=== PATIENT | female | born 1935 | race Caucasian/White ===

== ENCOUNTER 2016-07-07 12:10 | Observation (INO) | payer MEDICARE ==
--- NOTE | ~2016-07-07 | HP ---
History And Physical [place] [id number] [facility] [place]. [address] NAME: IJEOMA PITTS : 34 STATUS : ADM Garry PAT#: [id number] AGE: 80 ADM/REG DATE : 07/07/16 MR#: [id number] REPORT SERV DATE: 07/07/16 DICTATED BY: CHRISTINE LOMAX DATE: 07/07/16 REPORT STATUS : Draft TRANSCRIBED BY: MODMayra DATE: 07/07/16 DATE OF ADMISSION: 07/07/2016 CHIEF COMPLAINT: Left facial weakness as well as numbness starting yesterday progressing to the left upper and left lower lip today. HISTORY OF PRESENT ILLNESS: This is a very pleasant 80 years old female. 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 She has a history also of the right intraventricular thrombus, history of Crohn disease for which she has been prior on immunosuppression, history of prior GI bleed with peptic ulcer disease and GERD, history of achalasia, prior history of sepsis, history of tachycardia for which she has been on metoprolol, depression with anxiety. She is a patient of Dr. Holguin, her GI doctor, presenting today to [facility] with complaints that started yesterday with left facial weakness and numbness starting yesterday afternoon, which went today progressive to the left upper and left lower lip. She did not have any particular headaches. She has not had any chest pain or increasing shortness of breath. No PND. No orthopnea. She did not have any nausea, vomiting. No diarrhea or constipation. She has not had any increased urinary frequency or urgency. No hematemesis or melena. No hematochezia. No other complaints. After discussing with Neurology on-call, Dr. Rich, the patient has been admitted to hospitalist service for further evaluation and treatment. 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 PAST SURGICAL HISTORY: Include melanoma resection, hysterectomy, tonsillectomy, appendectomy, and cholecystectomy. FAMILY HISTORY: Significant for cancer. ALLERGIES: SHE IS ALLERGIC TO PENICILLIN. MEDICATIONS: Listed as her home medications include Tylenol, vitamin B12, vitamin D, Prozac, Toprol-XL, Systane, multivitamin, and Coumadin. REVIEW OF SYSTEMS: A 14-point review of systems has been obtained and pertinent positives have been listed into the history of present illness. Otherwise, negative except those underlying above. PHYSICAL EXAMINATION: VITAL SIGNS: Currently, patient is afebrile on arrival. Her blood pressure was 199/81, heart rate 81, respiratory rate 16, saturating 97% on room air. GENERAL: She is a very pleasant, well-developed, well-nourished female, in no acute History And Physical [address] [address] NAME: IJEOMA PITTS : 34 STATUS : ADM Garry PAT#: [id number] AGE: 80 ADM/REG DATE : 07/07/16 MR#: [id number] REPORT SERV DATE: 07/07/16 DICTATED BY: CHRISTINE LOMAX DATE: 07/07/16 REPORT STATUS : Draft TRANSCRIBED BY: BHAKTI DATE: 07/07/16 distress. She is alert and oriented x3. Nonfocal. She follows all her commands appropriately. HEENT: Pupils equal, round, reactive to light. Extraocular movements intact. NECK: No JVD. No lymphadenopathy. No thyromegaly appreciated. CHEST: Bilateral air entry. Clear anteroposterior. No wheezes, crackles, or rhonchi appreciated. CARDIOVASCULAR: She has regular rate and rhythm. S1, S2 positive. No S3, no S4. No murmurs, rubs, or gallops appreciated. ABDOMEN: Soft with positive bowel sounds. Nontender. No guarding. No rebound. EXTREMITIES: No clubbing, cyanosis, or edema. NEUROLOGIC: She is alert and oriented x3. She is nonfocal. She does have left facial weakness, numbness involving the forehead and the left upper and lower lips. Cranial nerves are intact. She follows all her commands appropriately. LABORATORY DATA: Labs from today include sodium of 143, potassium 4, chloride 112, CO2 of 26, BUN 12, creatinine 0.89, and glucose is 94. Her calcium is 8.8. Her total bilirubin is 0.3, alkaline phosphatase 170, ALT 58, AST 53. Troponin I less than 0.02. Her white count is 5.4, hemoglobin is 12.9, hematocrit 39.1, and platelets are 324. Her INR is 3. EKG shows normal sinus rhythm, some LVH, otherwise negative. Chest x-ray, portable, performed in the emergency room shows stable cardiomegaly. Lungs are clear. The CT of the brain without contrast shows moderate atrophy and deep white matter changes, no acute pathology, but there can be a subtle nonhemorrhagic infarction of an acute nature that can be missed by CT scan with recommendation to consider an MRI. ASSESSMENT AND PLAN: 1. This is a very pleasant 80-year-old female, presenting to [facility] with left facial weakness and left facial numbness. 2. History of deep venous thrombosis/pulmonary embolism with prior history of right ventricular thrombus on chronic anticoagulation with therapeutic INR. 3. History of tachycardia. 4. History of Crohn disease. 5. History of GI bleed with peptic ulcer disease. 6. History of esophagitis and hiatal hernia. PLAN: 1. The patient is going to be admitted to hospitalist service for observation. We are going to check an MRI/MRA of the brain and neck, and 2D echo. We are going to rule her for NH by serial cardiac enzymes, serial EKG. Check an ESR, CRP. Consult Dr. Rich from Neurology Service for further recommendation. 2. History of Crohn disease, stable currently. 3. History of tachycardia. We are going to continue her home medications. 4. Increased hypertension. We are going to continue her beta-tyrone and provide p.r.n. hydralazine as needed. We are going to provide reasonable pain and nausea control as well as GI and DVT prophylaxis with SCDs. That has been discussed extensively with the patient. All the questions have been answered in full. The patient remains a full code according to patient's wishes well stated. History And Physical [address] [place] [id number] NAME: IJEOMA PITTS : 34 STATUS : ADM Garry PAT#: [id number] AGE: 80 ADM/REG DATE : 07/07/16 MR#: [id number] REPORT SERV DATE: 07/07/16 DICTATED BY: CHRISTINE LOMAX DATE: 07/07/16 REPORT STATUS : Draft TRANSCRIBED BY: BHAKTI DATE: 07/07/16 It is worthwhile to note that the patient is going to be followed up by Dr. Thanh Ryan. CF/BHAKTI Christine Lomax M.D. / [id number]
--- NOTE | ~2016-07-07 | DS ---
Discharge Summary [place] [id number] [place]. [address] NAME: IJEOMA PITTS : 34 STATUS : DIS Garry PAT#: [id number] AGE: 80 ADM/REG DATE : 07/07/16 MR#: [id number] REPORT SERV DATE: 07/09/16 DICTATED BY: DATE: REPORT STATUS : Draft TRANSCRIBED BY: MODL DATE: 07/08/16 ADMISSION DATE: 07/07/2016 DISCHARGE DATE: 07/08/2016 DISCHARGE DIAGNOSES: 1. Rios's palsy. 2. History of deep vein thrombosis and pulmonary embolism, also right ventricular thrombus, on chronic anticoagulation with Coumadin therapy. 3. History of tachycardia. 4. History of Crohn's disease. 5. History of gastrointestinal bleed and peptic ulcer disease. 6. History of esophagitis and hiatal hernia. CONSULTING PHYSICIANS: Include Dr. Sybil Rich with Neurology. DISCHARGE MEDICATIONS: Include vitamin B12, 1000 mcg IM q.30 days; vitamin D 50,000 units p.o. weekly; Prozac 20 mg p.o. every evening; Toprol-XL 25 mg p.o. every evening; Lipitor 40 mg p.o. daily at bedtime; Coumadin per patient's home schedule; Systane one drop ophthalmic daily p.r.n. for dryness and burning; PreserVision one cap p.o. b.i.d.; Tylenol 325 mg p.o. daily p.r.n. for pain; and prednisone tapering dose. IMAGING: Includes MRI of the brain without contrast, which demonstrated atrophy and chronic microvascular white matter ischemic changes, no evidence of an acute intracranial abnormality was noted. CT of the brain without contrast demonstrated the same moderate atrophy and deep white matter changes. No acute abnormality was noted. MRA of the head and neck were performed, which were negative for the [place] region as well as focal areas of decreased signal in the internal carotid arteries bilaterally at the level of the temporal bones which is likely artifactual, although stenosis could not be excluded. No evidence of significant carotid stenosis was noted otherwise. For full H and P, please refer to Dr. Andrea Chávez's dictation on 07/07/2016. Please also see Dr. Sybil Rich's consultation dictation on 07/07/2016. HOSPITAL COURSE/PROBLEM LIST: 1. Rios's palsy. The patient presented yesterday to the emergency department with left- sided facial weakness. She was worked up for an acute CVA. As mentioned above, the imaging was negative. The patient subsequently was diagnosed with Rios's palsy per Dr. Sybil Rich. I will discharge her with a tapering dose of prednisone p.o. She will follow up with Neurology in four weeks. I will also recommend artificial tears for her left eye as well as an eye patch. 2. Due to history of DVT, pulmonary embolism, and left atrial thrombus, the patient is on chronic Coumadin therapy. Her INR today was 3.2. I will leave her on her home-dosing regimen and have her follow up closely for INR checks. 3. History of tachycardia. She has not demonstrated tachycardia here in the hospital. I will continue her on her Toprol-XL and have her follow up with her primary care provider. 4. History of Crohn's, this is stable. Discharge Summary [address] [address] NAME: IJEOMA PITTS : 34 STATUS : DIS Garry PAT#: [id number] AGE: 80 ADM/REG DATE : 07/07/16 MR#: [id number] REPORT SERV DATE: 07/09/16 DICTATED BY: DATE: REPORT STATUS : Draft TRANSCRIBED BY: MODMayra DATE: 07/08/16 5. History of GI bleed. No melena, hematochezia, or hematemesis reported. 6. History of esophagitis and hiatal hernia. The patient will continue her home medications. 7. Hypertension. The patient has been somewhat hypertensive since she has been in the hospital. Likely, this is due to stress of admission as well as the diagnosis of Rios's palsy. The patient reports that she has a blood pressure cuff at home. Her son is an founder and chief executive officer, and he will ensure that she checks her blood pressure daily. If her blood pressure stays elevated, she will follow up with her primary care provider for further management of this. Her last blood pressure is 167/74, heart rate of 71, temperature of 97.8, and O2 saturation 98% on room air. CLR/MODL Luiz Vaz NP / [id number] CC: MD Caden Antonio MD
--- NOTE | ~2016-07-07 | CN ---
Consultation Report [facility] [address] [place]. [address] NAME: IJEOMA PITTS : 34 STATUS : ADM Garry PAT#: [id number] AGE: 80 ADM/REG DATE : 07/07/16 MR#: [id number] REPORT SERV DATE: 07/07/16 DICTATED BY: DATE: REPORT STATUS : Draft TRANSCRIBED BY: MODL DATE: 07/07/16 NEUROLOGY CONSULTATION DATE OF CONSULTATION: 07/07/2016 REASON FOR CONSULT: Left facial weakness, concern for Rios's palsy. HISTORY OF PRESENT ILLNESS: This is an 80-year-old female who presented to [facility] on 07/07/2016. The patient awoke this morning and was noted to have left facial weakness involving upper as well as lower face with the patient also complains of perioral numbness as well as tingling in the left perioral area which has been ongoing since 07/06/2016. The patient reports numbness persisted and otherwise denies any diplopia and denies any dysarthria. Denies any other focal weakness or numbness in the extremities and denies gait abnormality. The patient denies similar events in the past and denies any recent illness, fever, chills, nausea, vomiting, chest pain, or shortness of breath. The patient does complain of eye discomfort secondary to incomplete eye closure as well as erythema in the left eye. The patient does have a history of Crohn's disease as well as history of lower extremity DVTs. Previous history of GI bleed required blood transfusion as well as history of previous immunosuppression recently off immunosuppressors as well as history of PE in the past and right intraventricular thrombus per medical records. FAMILY HISTORY: The patient's family history is significant for cancer. ALLERGIES: THE PATIENT WAS NOTED TO HAVE ALLERGY TO PENICILLIN. MEDICATIONS: The patient's medications consist of Tylenol, vitamin B12, vitamin D, Prozac, Toprol, Systane, multivitamin, and Coumadin. REVIEW OF SYSTEMS: Negative except for those mentioned in the HPI. SOCIAL HISTORY: The patient denies tobacco, alcohol, or recreational drug usage. PHYSICAL EXAMINATION: VITAL SIGNS: At the time of evaluation, the patient's vital signs demonstrated T-max of 98.4, heart rate of 72 to 81, respirations of 12 to 18, and blood pressure of 135 to 199 over 64 to 81. GENERAL: The patient is well developed, well nourished, in no acute distress. CARDIOVASCULAR: Regular rate and rhythm. No carotid bruits were otherwise auscultated. PULMONARY: Examination was clear to auscultation bilaterally. NEUROLOGICAL EXAMINATION: Generally, the patient is alert oriented to person, place, year, and month. Follows simple and 2-step commands. Intact registration and recall. No dysarthria or aphasia was otherwise noted. Again, the patient is able to follow simple and 2-step commands. Cranial nerves 2 through 12, pupils equal, round, and reactive to light. Consultation Report [facility] [address] [facility] [place]. [address] NAME: IJEOMA PITTS : 34 STATUS : ADM Garry PAT#: [id number] AGE: 80 ADM/REG DATE : 07/07/16 MR#: [id number] REPORT SERV DATE: 07/07/16 DICTATED BY: DATE: REPORT STATUS : Draft TRANSCRIBED BY: MODL DATE: 07/07/16 Extraocular eye movement was noted to be intact. No nystagmus was observed. No diplopia was noted by the patient. The patient otherwise was noted to have left upper as well as the lower face weakness at the time of evaluation with the patient noted to have incomplete left eye closure. Reports symmetrical sensation in cranial nerve V1, 2 and 3 distribution area. Tongue was noted to be deviated to the right. Normal palatal movement. Normal hearing at the time of evaluation. The patient does demonstrate 5/5 bilateral upper and lower extremity strength. No pronator drift was otherwise noted. Normal [id number] examination without ataxia with the patient noted to have 5/5 bilateral lower extremity strength. Reports symmetrical sensation in bilateral upper and lower extremity. The patient does demonstrate stable gait as well as stable station. LABORATORY STUDIES: Demonstrated sodium 143, potassium 4.0, chloride 112, bicarb of 26, BUN of 12, creatinine 0.89, glucose of 94, and calcium of 8.8. White blood cell count of 5.4, hemoglobin of 12.9, hematocrit of 39.1, and platelet count of 324. CT scan of her brain demonstrated white matter diseases and generalized atrophy but otherwise no acute process was seen. IMPRESSION: 1. Left facial weakness, reports perioral numbness as well as tongue deviation, at the time of evaluation, to the left, concern for possible stroke versus Rios's palsy. MRI of the brain without contrast is pending. We will also obtain fasting lipid panel and hemoglobin A1c pending MRI results. We will decide if other diagnostic tests are required. We will start the patient on Lipitor 80 mg p.o. at bedtime and continue Coumadin. RECOMMENDATIONS: 1. MRI of the brain without contrast. 2. Fasting lipid panel and hemoglobin A1c. 3. Lipitor 80 mg p.o. at bedtime. 4. Continue Coumadin. [facility]/MODL Caden Rich MD / [id number] CC: Thanh Ryan MD
[2016-07-07 12:03] LABS: BASOPHILS 0 %; EOSINOPHILS 0.4 %; EOSINOPHILS ABSOLUTE 0.02 10/3/uL (0.0-0.53); IMMATURE GRANULOCYTES 0.2 %; IMMATURE GRANULOCYTES ABSOLUTE 0.01 10/3/uL (0.0-0.11); LYMPHOCYTES 13.8 %; LYMPHOCYTES ABSOLUTE 0.74 10/3/uL (0.67-4.30); MONOCYTES ABSOLUTE 0.59 10/3/uL (0.21-1.20); NEUTROPHILS 74.6 %; NEUTROPHILS ABSOLUTE 4.02 10/3/uL (2.02-8.40); PLATELET COUNT 324 10/3/uL (150-400); RBC DISTRIBUTION WIDTH 15.8 % (12.0-16.0); WHITE BLOOD CELLS 5.4 10/3/uL (4.5-10.5)
[2016-07-07 12:04] LABS: HEMATOCRIT 39.1 % (36.0-48.0); HEMOGLOBIN 12.9 g/dL (12.0-16.0); MEAN CORPUSCULAR VOLUME 90.9 fL (80-100)
[2016-07-07 12:05] LABS: MANUAL DIFF NO %
[2016-07-07 12:10] LABS: PARTIAL THROMBO TIME 48.8 SEC (22.5-37.2)
[~2016-07-07 12:10] MED LIST: ACET500CAP PO; ALEVE PM PO; ASAB PO; B121000P IM; BIST PO; BUSPAR10 PO; BUSPAR5 PO; COUMADIN3 MG PO; COUMADIN4 MG PO; COUMADIN6 MG PO; DIL2TAB PO; DURICEF PO; ELIQUIS 5 MG TAB5 MG PO; FESO4 PO; FLAG500TAB PO; HUMIRA INJECTION SC; NEXIUM20 M1 PO; P10 PO; P20 PO; PRIN5 PO; PROTONIX PO; PROZAC PO; PROZAC40 MG PO; SYSTANE OPH; TOPXL25 PO; TOPXL50 PO; TUMSROLL PO; VITAMIN B IM
[2016-07-07 12:11] LABS: PROTIME (NOT ORD) 30.9 SEC (12.0-14.5)
[2016-07-07 12:20] LABS: CHLORIDE, SERUM 112 MMOL/L (96-112); CREATININE 0.89 MG/DL (0.55-1.02); GFR AFRICAN AMERICAN 70 ML/MIN (>=60); GFR NON AFRICAN AMERICAN 61 ML/MIN (>=60); GLUCOSE, SERUM 94 MG/DL (60-99); SGOT(AST) 53 U/L (5-40); SGPT(ALT) 58 U/L (5-65); SODIUM, SERUM 143 MMOL/L (135-148); TOTAL BILIRUBIN 0.3 MG/DL (0-1.2); TROPONIN I <0.02 NG/ML (<0.05)
[2016-07-07 12:23] LABS: A/G RATIO 0.6 (0.7-1.9); ALBUMIN 3.1 G/DL (3.5-5.0); ALKALINE PHOSPHATASE 170 U/L (45-117); BUN (BLOOD UREA NITROGEN) 12 MG/DL (6-23); CALCIUM, SERUM 8.8 MG/DL (8.5-10.4); CO2 (CARBON DIOXIDE) 26 MMOL/L (24-34); GLOBULIN 4.8 G/DL (2.5-4.1); TOTAL PROTEIN 7.9 G/DL (6.0-8.5)
[2016-07-07] MEDS ORDERED: SYSTANE OPH (14:20)
[2016-07-07] MEDS ORDERED: PROZAC PO (14:20)
[2016-07-07] MEDS ORDERED: TOPXL25 PO (14:21)
[2016-07-07] MEDS ORDERED: VITD PO (14:21)
[2016-07-07] MEDS ORDERED: PRESERVISION A1 EAC1 PO (14:22)
[2016-07-07] MEDS ORDERED: T PO (14:25)
[2016-07-07] MEDS ORDERED: B121000P IM (14:25)
[2016-07-07] MEDS ORDERED: C1 PO (14:25)
[2016-07-07 20:55] LABS: PHOSPHORUS, SERUM 2.1 MG/DL (2.5-4.5)
[2016-07-07 20:56] LABS: C-REACTIVE PROTEIN < 2.9 MG/L (<8.0)
[2016-07-08 04:46] LABS: BASOPHILS 0 %; EOSINOPHILS 1.3 %; EOSINOPHILS ABSOLUTE 0.07 10/3/uL (0.0-0.53); HEMATOCRIT 36.8 % (36.0-48.0); HEMOGLOBIN 11.9 g/dL (12.0-16.0); IMMATURE GRANULOCYTES 0.4 %; IMMATURE GRANULOCYTES ABSOLUTE 0.02 10/3/uL (0.0-0.11); LYMPHOCYTES 18.1 %; LYMPHOCYTES ABSOLUTE 1.01 10/3/uL (0.67-4.30); MEAN CORPUS HGB CONC 32.3 g/dL (32.0-36.0); MEAN CORPUSCULAR HEMOGLOB 29.5 pg (26.0-34.0); MEAN CORPUSCULAR VOLUME 91.3 fL (80-100); MEAN PLATELET VOLUME 9.4 fL (9.2-13.0); MONOCYTES ABSOLUTE 0.84 10/3/uL (0.21-1.20); NEUTROPHILS 65.2 %; NEUTROPHILS ABSOLUTE 3.65 10/3/uL (2.02-8.40); PLATELET COUNT 311 10/3/uL (150-400); RBC DISTRIBUTION WIDTH 15.8 % (12.0-16.0); RED CELL COUNT 4.03 10/6/uL (4.0-5.6); WHITE BLOOD CELLS 5.6 10/3/uL (4.5-10.5)
[2016-07-08 04:47] LABS: MANUAL DIFF NO %
[2016-07-08 04:52] LABS: INTERNATIONAL NORMAL RATI 3.2 UNITS (-); PROTIME (NOT ORD) 32.2 SEC (12.0-14.5)
[2016-07-08 05:04] LABS: A/G RATIO 0.7 (0.7-1.9); ALBUMIN 2.9 G/DL (3.5-5.0); ALKALINE PHOSPHATASE 152 U/L (45-117); BUN (BLOOD UREA NITROGEN) 12 MG/DL (6-23); CHLORIDE, SERUM 113 MMOL/L (96-112); CO2 (CARBON DIOXIDE) 22 MMOL/L (24-34); CREATININE 0.75 MG/DL (0.55-1.02); GFR AFRICAN AMERICAN 87 ML/MIN (>=60); GFR NON AFRICAN AMERICAN 75 ML/MIN (>=60); GLOBULIN 4.1 G/DL (2.5-4.1); GLUCOSE, SERUM 95 MG/DL (60-99); POTASSIUM, SERUM 3.9 MMOL/L (3.5-5.3); SGOT(AST) 37 U/L (5-40); SGPT(ALT) 50 U/L (5-65); SODIUM, SERUM 144 MMOL/L (135-148); TOTAL BILIRUBIN 0.3 MG/DL (0-1.2); TROPONIN I <0.02 NG/ML (<0.05)
[2016-07-08 07:51] LABS: WBC (NOT ORDERED) (RFLEX) 0 (0-5)
[2016-07-08 08:01] LABS: CHOL/HDL RATIO(NOT ORDER) 2.6 (0-5); CHOLESTEROL 131 MG/DL (< 200); LDL CHOLESTEROL 54 MG/DL (< 130); NON-HDL CHOLESTEROL 81 MG/DL (< 160); TRIGLYCERIDE 139 MG/DL (< 150)
[2016-07-08 08:07] LABS: HDL CHOLESTEROL 50 MG/DL (> 49)
[2016-07-08 08:10] LABS: ASCORBIC ACID (UR NOT ORDER) 20 (NEG); BILIRUBIN, URINE NEGATIVE (NEG); KETONE, URINE NEGATIVE (NEG); LEUKOCYTE ESTERASE(NOT OR NEG (NEG)
[2016-07-08] MEDS ORDERED: LIPITOR40 (15:16)
[2016-07-08] MEDS ORDERED: P1 (15:17)
[2016-09-09] MEDS ORDERED: XARELTO20 MG PO (23:04)
[2016-09-09] MEDS ORDERED: ZYRTEC ALLGY10 MG PO (23:05)
[2016-09-09] MEDS ORDERED: PROTONIX PO (23:05)
[2016-09-12] MEDS ORDERED: XARELTO10 MG (10:12)
[2016-09-12] MEDS ORDERED: VITAMIN D31000 UNIT (10:12)
== END 2016-07-08 15:34 | disposition home or self-care (01) ==
LOC: ER 12:10 → CDU1 15:21 → CDU2 16:07
PROVIDERS: Emergency Medicine; Internal Medicine
DX: G51.0 Bell's palsy (principal); K50.90 Crohn's disease, unspecified, without complications; K21.9 Gastro-esophageal reflux disease without esophagitis; F41.8 Other specified anxiety disorders; Z86.718 Personal history of other venous thrombosis and embolism; D50.9 Iron deficiency anemia, unspecified; M19.90 Unspecified osteoarthritis, unspecified site; Z90.710 Acquired absence of both cervix and uterus; Z90.49 Acquired absence of other specified parts of digestive tract; Z98.890 Other specified postprocedural states; Z88.0 Allergy status to penicillin; Z79.899 Other long term (current) drug therapy; Z79.01 Long term (current) use of anticoagulants
CPT/HCPCS: 70450; 70544; 70547; 70551; 71010; 80053; 80061; 81001; 83036; 83615; 83735; 84100; 84439; 84443; 84484; 85025; 85610; 85652; 85730; 86140; 93005; 96374; 99285; A9270-GY; G0378; J0360